=== PATIENT | male | born 1950 | race Caucasian/White ===

== ENCOUNTER 2020-06-28 09:05 | Emergency (ER) | payer OTHER, SELFPAY ==
[2020-06-28 09:06] VITALS: BP 130/75; PULSE 69; RESP 20; TEMP 36.6; O2SAT 95; BMI 24.3
--- NOTE | 2020-06-28 09:26 | CT_ITS ---
STUDY: CT ABDOMEN AND PELVIS WITH CONTRAST REASON FOR EXAM: Male, 70 years old. Abdominal pain -- IV PO Contrast. History of hiatal hernia. RADIATION DOSAGE (If Supplied By Facility): CTDIvol = ( 14.45 ) mGy, DLP = ( 776.91 ) mGycm TECHNIQUE: Transaxial images were obtained from the dome of the diaphragm to the symphysis pubis without oral contrast. Oral and amp;amp; IV Gastrografin and amp;amp; 100mL Isovue-300 was administered. Sagittal and coronal images were reconstructed. Individualized dose optimization techniques were used for this CT. COMPARISON: None. FINDINGS: Mild degree of increased linear markings at the lung bases suggestive of atelectasis and/or scarring. The visualized portions of the heart are within normal limits. Normal liver. Normal gallbladder and extrahepatic biliary system. Normal spleen. Normal pancreas. There is a small, circumscribed, smooth, low attenuation left adrenal mass, consistent with an adrenal adenoma. This measures 1.3 cm. Normal right adrenal gland. Normal right kidney. Normal left kidney. There is a small hiatal hernia. Normal small intestine. There is a 2.3 cm x 2.3 cm fatty mass in the region of the ileocecal valve. This may represent a lipomatous ileocecal valve. The fat-containing polyp cannot be excluded. Scattered sigmoid diverticula. The patient is status post appendectomy. There is scattered atherosclerotic calcification of the abdominal aorta, without a demonstrated aneurysm. Normal inferior vena cava. Normal retroperitoneum. Normal urinary bladder. There are prostatic calcifications. Mild prostatic enlargement. There is a small umbilical hernia containing fat. There are mild degenerative changes of the visualized lumbar spine. CT/Abdomen/Pelvis WITH Contrast IMPRESSION: Fat containing mass in the cecum in the region of the ileocecal valve. This may represent either a fatty ileocecal valve or fat-containing polyps. Scattered sigmoid diverticula. 1.3 cm left adrenal adenoma. Electronically Signed: Sreedhar Soto MD at 11:28 EDT , Service support ,
--- NOTE | 2020-06-28 09:28 | EX.ED.DYSGE1 ---
HPI History of Present Illness Chief Complaint: Fatigue Informant: patient Onset/Context/Timing Onset: Month(s) Timing: Waxes and wanes Quality: Fatigued and weak Location: Generalized Worsened by: Nothing Relieved by: Nothing Narrative Narrative: Patient presents with fatigue and weakness that has been getting worse over the past few months. Patient states his symptoms have been waxing and waning over this time. Patient states sometimes when he eats his abdominal pain gets worse. Patient is concerned that this may be related to his gallbladder or colon. Patient admits to some intermittent nausea but denies any vomiting. Patient denies any shortness of breath or cough. Patient denies any chest pain. Patient admits to occasional headache. PFSH PFSH no medical history Home Medications NK 06/28/20 [History Last Taken Unknown] cephalexin 500 mg PO Q6 #12 capsule 06/28/20 [Rx Last Taken Unknown] Allergy/AdvReac Type Severity Reaction Status Date / Time No Known Allergies Allergy Verified 06/28/20 09:08 Surgical History (Updated 06/28/20 @ 09:[address] Vic Leahy DO) History of appendectomy History of arthroscopic knee surgery History of repair of hiatal hernia Social History Smoking Status: Never smoker ROS ROS ED Constitutional Constitutional ED: Denies chills or fever(s) Eyes Eyes: Denies blurry vision or change in vision ENT ENT ED: Denies rhinorrhea or sore throat Cardiovascular Cardiovascular: Denies chest pain or palpitations Respiratory/Chest Respiratory/Chest: Denies cough or dyspnea Gastrointestinal Gastrointestinal: Reports abdominal pain and nausea; Denies vomiting Genitourinary Genitourinary ED: Denies dysuria or hematuria Musculoskeletal Musculoskeletal: Denies back pain or neck pain Integumentary Denies abscess or rash Neurologic Neurologic: Reports headache(s); Denies weakness Allergic/Immunologic Allergic/Immunologic ED: Denies mouth swelling or urticaria EXAM Physical Exam Const Vital Signs: 06/28/20 09:06 06/28/20 09:14 06/28/20 12:35 Temperature 97.9 F Temperature Source Temporal Pulse Rate 69 63 Respiratory Rate 20 H 14 Respiratory Effort Normal Non-Labored Respiratory Pattern Normal Blood Pressure 130/75 H 111/78 Blood Pressure Mean 93 89 Pulse Ox 95 96 Oxygen Delivery Method Room Air Room Air Positive well nourished and well developed General Appearance ED: well developed HEENT Reports moist mucous membranes Neck supple and no JVD Resp normal respiratory effort and clear to auscultation bilaterally Cardio regular rate and regular rhythm GI normal to inspection, nondistended, normoactive bowel sounds Palpation: soft and tender other (There is mild diffuse tenderness); Negative for guarding or rebound tenderness present Extremity General Extremety ED: Negative for edema or tenderness General Extremity: Negative for edema Neuro oriented x3, CN's II-XII intact bilaterally and no sensory deficits noted Sensorium / Orientation: alert Motor Exam: strength 5/5 throughout Psych mental status grossly normal MDM MDM MDM Narrative Medical decision making narrative: CBC and comprehensive metabolic profile was within normal limits. Urinalysis shows evidence of urinary tract infection with leukocyte esterase of 500 and white blood cell count of 25-50 and 2+ bacteria. CT scan of the abdomen pelvis was obtained. There is no evidence of diverticulitis. There is diverticulosis. There is a left adrenal adenoma. There is no evidence of cholelithiasis or cholecystitis. There is no acute intra-abdominal process. This was interpreted by the radiologist and reviewed by myself. Patient was given a dose of Keflex here. Patient was given a prescription for Keflex. Patient was instructed to follow-up with his primary care physician in 5 to 7 days for further evaluation. Patient understood and was agreeable with the plan. All questions were answered. Lab Data Attestation: I reviewed the patient's lab results. Labs: Laboratory Results - last 24 hr 06/28/20 06/28/20 06/28/20 09:30 09:30 09:40 WBC 5.4 RBC 4.62 Hgb 14.4 Hct 43.8 MCV 94.8 H MCH 31.2 MCHC 32.9 RDW Std Deviation 50.3 H RDW Coeff of [place] 14.5 Plt Count 191 MPV 10.9 Immature Gran % (Auto) 0.400 Neut % (Auto) 59.9 Lymph % (Auto) 24.2 [place] % (Auto) 12.5 H Eos % (Auto) 2.6 Baso % (Auto) 0.4 Absolute Neuts (auto) 3.2 Absolute Lymphs (auto) 1.30 Nucleated RBC % 0 Sodium 138 Potassium 3.9 Chloride 104 Carbon Dioxide 30.0 Anion Gap 4 L BUN 21 H Creatinine 0.90 Estim Creat Clear Calc 72.83 Est GFR (MDRD) Af Amer 107 Est GFR (MDRD) Non-Af 89 BUN/Creatinine Ratio 23.4 H Glucose 99 Calcium 8.4 L Total Bilirubin 0.50 AST 18 ALT 10 L Alkaline Phosphatase 82 Total Protein 7.3 Albumin 3.5 Globulin 3.8 Albumin/Globulin Ratio 0.9 Lipase 164 Urine Color Yellow Urine Clarity Sl. Cloudy Urine pH 5.0 Ur Specific Center [place] 1.025 Urine Protein 15 H Urine Glucose (UA) Normal Urine Ketones 5 H Urine Occult Blood 10 H Urine Nitrite Negative Urine Bilirubin Negative Urine Urobilinogen Normal Ur Leukocyte Esterase 500 H Urine RBC 0-5 SEEN Urine WBC 25-50 SEEN Ur Squamous Epith Cells 0-5 SEEN Urine Bacteria 2+ Urine Mucus 1+ Radiography Diagnostic Testing: Radiology Impression Abdomen/Pelvis CT 06/28/20 09:26 IMPRESSION: Fat containing mass in the cecum in the region of the ileocecal valve. This may represent either a fatty ileocecal valve or fat-containing polyps. Scattered sigmoid diverticula. 1.3 cm left adrenal adenoma. Electronically Signed: Sreedhar Soto MD at 11:28 EDT , Service support , Discharge Plan Triage Chief Complaint: Fatigue ED Provider: Vic Leahy Dx/Rx/DC Orders Clinical Impression: Urinary tract infection Instructions: ED Bladder Infection, Male (Adult) Prescriptions: New cephalexin [cephalexin] 500 MG capsule 500 mg PO Q6 Qty: 12 RF: 0 No Action NK RF: 0 Primary Care Provider: Joey Betancur Referrals: Joey Betancur DO [Primary Care Provider] - 5-7 Days Disposition Disposition: Home, self care
[2020-06-28 09:41] LABS: Absolute Neutrophil Count 3.2 X10^3/uL (2.0-7.7); Basophil# 0.02 X10^3/uL; Basophil% 0.4 % (0-1); Eosinophil# 0.14 X10^3/uL; Eosinophils% 2.6 % (0-5); Hematocrit 43.8 % (40-54); Hemoglobin 14.4 g/dL (13.0-16.5); Lymphocyte % 24.2 % (19-41); Mean Corp Hgb Conc 32.9 g/dL (32-36); Mean Corpuscular Hgb 31.2 pg (27.0-32.0); Mean Corpuscular Volume 94.8 fL (80-94); Mean Platelet Vol. 10.9 fl (6.2-12.0); Monocyte# 0.67 X10^3/uL; Monocyte% 12.5 % (0-10); NRBC Flagged by Analyzer 0 % (0-5); Neutrophil # 3.22 X10^3/uL (2.7-7.7); Neutrophil % 59.9 % (47-70); Platelet Count 191 K/mm3 (150-450); RBC Distribution Width CV 14.5 % (11.6-14.6); RBC Distribution Width SD 50.3 fl (35.1-43.9); Red Blood Count 4.62 M/mm3 (4.6-6.2); White Blood Count 5.4 K/mm3 (4.4-11.0)
[2020-06-28] MEDS: 0.9% Normal Saline 1,000 ML 1000 ML IV (09:42)
[2020-06-28 09:55] LABS: ALB/GLOB Ratio 0.9 RATIO (0.9-2.4); AST(SGOT) 18 U/L (15-37); Alanine Aminotransfer ALT/SGPT 10 U/L (16-61); Albumin, Serum 3.5 g/dL (3.2-5.0); Alkaline Phosphatase 82 U/L (45-117); Anion Gap 4 (5-15); BUN 21 mg/dL (7-18); BUN/Creat Ratio 23.4 RATIO (10-20); Calcium,Total 8.4 mg/dL (8.5-10.1); Chloride 104 mmol/L (98-107); EST Glomerular Filtration Rate 89 mL/min (>60); Est Glom Filt Rate - Afr Amer 107 mL/min (>60); Estimated Creatinine Clearance 72.83 ml/min; Globulin 3.8 g/dL (2.2-4.2); Glucose 99 mg/dL (74-106); Lipase 164 U/L (73-393); Potassium 3.9 mmol/L (3.5-5.1); Protein, Total 7.3 g/dL (6.4-8.2); Sodium Level 138 mmol/L (136-145)
[2020-06-28 09:56] LABS: Color, Urine Yellow (Yellow); Glucose, Dipstick Normal (Normal); Ketone-Dipstick 5 mg/dl (Negative); Leukocyte Esterase-Dipstick 500 /ul (Negative); Nitrite-Dipstick Negative (Negative); Occult Blood-Urine 10 /ul (Negative); Protein-Dipstick 15 mg/dl (Negative); Specific Gravity, Urine 1.025 (1.002-1.030); Urine Bilirubin Dipstick Negative (Negative); Urine Clarity Sl. Cloudy (Clear); Urine Urobilinogen Normal (Normal)
[2020-06-28 10:05] LABS: Bacteria 2+ /hpf (None Seen); Mucous, Urine 1+ /hpf (<or=2+); Red Blood Cells-Urine 0-5 SEEN /hpf (0-5); Squamous Epithelial Cells - UA 0-5 SEEN /hpf (0-5); White Blood Cells 25-50 SEEN /hpf (0-5)
[2020-06-28 12:35] VITALS: BP 111/78; PULSE 63; RESP 14; O2SAT 96
[2020-06-28] MEDS: Cephalexin 500 MG Capsule PO (13:31)
[2020-06-28 13:37] VITALS: BP 119/74; PULSE 63; RESP 14; O2SAT 99
== END 2020-06-28 13:38 | disposition home or self-care (01) ==
PROVIDERS: Emergency Provider Emergency Medicine; PCP Family Medicine
DX: N39.0 Urinary tract infection, site not specified (principal); R51.9 Headache, unspecified; K57.30 Diverticulosis of large intestine without perforation or abscess without bleeding; D35.02 Benign neoplasm of left adrenal gland
CPT/HCPCS: 74177; 80053; 81001; 83690; 85025; 96360; 96361; 99284; Q9967

== ENCOUNTER 2020-07-23 08:09 | Day surgery (SDC) | payer SELFPAY, OTHER ==
[2020-07-19 09:10] VITALS: BMI 24.3
[2020-07-23] VITALS (7 sets, daily range): BP systolic 87–107; BP diastolic 64–73; PULSE 60–78; RESP 16; TEMP 36.2–36.9; O2SAT 92–96; BMI 24.0
[2020-07-23] MEDS: Lactated Ringers 1,000 ML 100 ML IV (08:32)
--- NOTE | 2020-07-23 08:45 | PCM.HP.BLA ---
History and Physical Date of Admission: 07/23/20 Intake Vital Signs 07/19/20 09:03 07/19/20 09:10 Height 5 ft 8 in Weight: 162 lb BMI 24.6 24.3 BP 117/82 H Blood Pressure Location Rt brachial Position Sitting Respiration 16 Pulse 68 Pulse Source Monitor Temp 97.8 F Temp Source Temporal Pulse Oximetry (%) 91 Oxygen Delivery Method room air Intake Visit Reasons: CSCOPE, EGD Mid Level Business Analyst Required: No Accompanied by: Self Is patient in pain?: No Allergies No Known Allergies Allergy (Verified 07/19/20 09:05) Medications NK 06/28/20 [History Confirmed 06/28/20] [facility] Medical History (Updated 07/19/20 @ 10:[address] Matt Diaz MD) Abdominal pain Diarrhea Fatigue Mass of cecum Sigmoid diverticulum Surgical History (Updated 07/19/20 @ 09:01 by Helene Smith) History of appendectomy History of arthroscopic knee surgery History of colonoscopy History of repair of hiatal hernia Family History (Updated 07/19/20 @ 09:02 by Helene Smith) Sister Pancreatic cancer Mother Diabetes Social History (Updated 07/19/20 @ 09:03 by Helene Smith) Smoking Status: Never smoker second hand exposure: No alcohol intake: never substance use type: does not use caffeine: Yes what type of physical activity do you participate in: walking HPI HPI HPI: WES PHELAN, is a 70 M who presents to the office today for right-sided abdominal pain. The patient notes that he has had a fundoplication in the past. He reports that he has been having a lot of fatigue. His blood count was normal. He is not having gross blood in his stool. His last colonoscopy was 6 years ago in [place]. He thinks it was normal. He was recently emergency room and had a CT scan which showed a fat-containing mass in the cecum. ROS General General: Yes fatigue; No weight change, appetite, colon cancer, breast cancer or weakness HEENT HEENT: No difficulty swallowing, eye injury, eye surgery, swollen glands or hoarseness Endo Endocrine: No thyroid disease, diabetes mellitus, thyroid cancer, Hair loss, heat intolerance or cold intolerance Skin Skin: No rash or changing moles Musc Musculoskeletal: No back problems, arthritis, rheumatoid arthritis, gout or joint pain Cardio Cardiovascular: No murmur, pacemaker, heart disease, atrial fibrillation, high blood pressure, heart attack, heart stent, palpitations, shortness of breat with exertion or chest pain Psych Psychiatric: No depression, anxiety or hearing voices Resp Respiratory: No shortness of breath, No sleep apnea, Yes cough, No COPD, No asthma, No emphysema and No wheezing Gastro Gastrointestinal: Yes abdominal pain, No nausea or vomiting, Yes diarrhea, No constipation, No blood in stool, No acid reflux, No hemorrhoids, No ulcers, No gallbladder problem and No black,tarry stools Ángel Hematologic: No blood thinners, No blood disorders, No bleeding, No anemia and No blood clots Neuro Neurologic: No weakness Exam Const General: cooperative Orientation: alert and oriented x3 HENMT Head: normal to inspection Neck Neck: normal visual inspection and full ROM Chest Chest palpation & inspection: normal inspection of the chest Resp Effort & Inspection: normal respiratory effort Auscultation: clear to auscultation bilaterally Cardio Rate: regular rate Rhythm: regular rhythm GI Inspection: non-distended Palpation: soft and nontender Skin General: no rashes or lesions noted Neuro General: patient alert and patient oriented x3 Extrem General: full ROM Psych Appearance: grossly normal Mental Status: mental status grossly normal Assessment and Plan Assessment and Plan (1) Abnormal CT scan, colon: Status: Acute (2) Abdominal pain: Status: Acute Qualifiers: Abdominal location: right lower quadrant Qualified Code(s): R10.31 - Right lower quadrant pain Orders: Orders: Colonoscopy Today R93.3 Plan - Dr. Matt Diaz MD: Patient is having right-sided abdominal pain and he had an abnormal CT that showed a fat-containing mass in the right colon. Patient is also complaining of a lot of fatigue and he was having some difficulty in his epigastric region. He has a history of hiatal hernia repair. I did offer the patient EGD and colonoscopy to check for any malignancy and to evaluate the fat-containing mass in the cecum. The patient understands and would like to proceed with both scopes. I explained endoscopy in detail to the patient. I explained the risks including but not limited to stroke or heart attack with anesthesia, perforation of the GI tract, bleeding, infection. I explained that any of these could necessitate further emergency surgery. The patient understands and all questions were answered sufficiently. The patient wishes to proceed with procedure. Matt Diaz MD Pager: [facility] [address] [place] [address], [address] [place] [address] Office: I have re-examined the patient. There are no clinical changes since date of exam.
--- NOTE | 2020-07-23 09:00 | COLBX_PTH ---
PATIENT: WES PHELAN LOC: EN U#:[id number] AGE/SX: 70/M ROOM: RE07/23/[address]: Dr. Matt Diaz MD : 1950 BED: DIS: 07/23/2020 SPEC #: [id number] RECD: 07/23/20 10:29 STATUS: LISY BUTLER #: [id number] MANOHAR: 07/23/20 09:[address]: Matt Diaz DEPT: SURGICAL PATHOLOGY RECD BY: Preeti Baires ENTERED: 07/23/20 11:44 SP TYPE: COLON BX OTHR DR: Dr. Joey Betancur DO Tissues: Transverse colon Procedures: Surgery Specimen Level IV HEADER OPERATION: Colonoscopy, EGD ([facility]) PRE-OP DIAGNOSIS: Right-sided abdominal pain; abnormal CT showing fat-containing right colon mass TISSUE SUBMITTED: Transverse polyps MICROSCOPIC DIAGNOSIS Transverse colon polyp, biopsy: Fragments of hyperplastic polyp. Fragments of fecal material. SJ:honey 07/26/2020 MICROSCOPIC DESCRIPTION Slides are reviewed. GROSS DESCRIPTION Received in fixative is one container labeled with the patient's name and designated transverse polyps. The specimen consists of multiple irregular fragments of light caldera soft tissue mixed with fecal material that in aggregate measure 2 x 0.5 x 0.3 cm. The specimen is totally submitted in one cassette. / JEFF:honey 07/23/20 TC:1 CPT: 33959
--- NOTE | 2020-07-23 12:12 | OP.CCLET_ITS ---
07/23/2020 Joey Betancur Re : Colonoscopy procedure for Maty Magdalenoler This procedure was performed on Thursday, July 23, 2020. My impressions and recommendations are as follows: Impressions : - Two medium polyps in the transverse colon, removed with a hot snare. Resected and retrieved. - The examination was otherwise normal on direct and retroflexion views. Recommendations : - Discharge patient to home. - Resume previous diet. - Continue present medications. - Await pathology results. - Repeat colonoscopy in 5 years for surveillance. My findings are described in the full procedure note, which is enclosed. If I can be of further assistance, please feel free to contact me at Doctor phone number(s): , Work: . Sincerely, Matt Diaz MD 07/23/2020 9:42:13 AM This report has been signed electronically.
--- NOTE | 2020-07-23 12:12 | OP.EGD_ITS ---
Patient Name: Maty Colin Procedure Date: 07/23/2020 8:52 AM Date of : 1950 Age: 70 Procedure: Upper GI endoscopy Indications: Gastro-esophageal reflux disease Providers: Matt Diaz MD Referring MD: Matt Diaz MD Medicines: Monitored Anesthesia Care Patient Profile: This is a 70 year old male. Refer to note in patient chart for documentation of history and physical. Complications: No immediate complications. Procedure: Pre-Anesthesia Assessment: - Prior to the procedure, a History and Physical was performed, and patient medications and allergies were reviewed. The patient's tolerance of previous anesthesia was also reviewed. The risks and benefits of the procedure and the sedation options and risks were discussed with the patient. All questions were answered, and informed consent was obtained. Prior Anticoagulants: The patient has taken no previous anticoagulant or antiplatelet agents. After reviewing the risks and benefits, the patient was deemed in satisfactory condition to undergo the procedure. After obtaining informed consent, the endoscope was passed under direct vision. Throughout the procedure, the patient's blood pressure, pulse, and oxygen saturations were monitored continuously. The gastroscope was introduced through the mouth, and advanced to the second part of duodenum. The upper GI endoscopy was accomplished without difficulty. The patient tolerated the procedure well. Scope In: 9:08:14 AM Scope Out: 9:10:25 AM Total Procedure Duration Time 0 hours 2 minutes 11 seconds Findings: The esophagus was normal. The stomach was normal. Saravanan wrap intact and below diaphragm. The examined duodenum was normal. Impression: - Normal esophagus. - Normal stomach. - Normal examined duodenum. - No specimens collected. Recommendation: - Discharge patient to home. - Resume previous diet. - Continue present medications. Procedure Code(s): --- Professional --- 83216, Esophagogastroduodenoscopy, flexible, transoral; diagnostic, including collection of specimen(s) by brushing or washing, when performed (separate procedure) Diagnosis Code(s): --- Professional --- K21.9, Gastro-esophageal reflux disease without esophagitis CPT copyright 2017 [employer]. All rights reserved. The codes documented in this report are preliminary and upon senior sales associate review may be revised to meet current compliance requirements. Matt Diaz MD 07/23/2020 9:30:26 AM This report has been signed electronically. Number of Addenda: 0 Note Initiated On: 07/23/2020 8:52 AM
--- NOTE | 2020-07-23 12:12 | OP.CCLET_ITS ---
07/23/2020 Joey Betancur Re : Upper GI endoscopy procedure for Maty Antoine Gypsy This procedure was performed on Thursday, July 23, 2020. My impressions and recommendations are as follows: Impressions : - Normal esophagus. - Normal stomach. - Normal examined duodenum. - No specimens collected. Recommendations : - Discharge patient to home. - Resume previous diet. - Continue present medications. My findings are described in the full procedure note, which is enclosed. If I can be of further assistance, please feel free to contact me at Doctor phone number(s): , Work: . Sincerely, Matt Diaz MD 07/23/2020 9:30:26 AM This report has been signed electronically.
--- NOTE | 2020-07-23 12:12 | OP.COLON_ITS ---
Patient Name: Maty Colin Procedure Date: 07/23/2020 9:10 AM Date of : 1950 Age: 70 Procedure: Colonoscopy Indications: Abnormal CT of the GI tract Providers: Matt Diaz MD Referring MD: Matt Diaz MD Medicines: Monitored Anesthesia Care Patient Profile: This is a 70 year old male. Refer to note in patient chart for documentation of history and physical. Last Colonoscopy: date unknown. Complications: No immediate complications. Procedure: Pre-Anesthesia Assessment: - Prior to the procedure, a History and Physical was performed, and patient medications and allergies were reviewed. The patient's tolerance of previous anesthesia was also reviewed. The risks and benefits of the procedure and the sedation options and risks were discussed with the patient. All questions were answered, and informed consent was obtained. Prior Anticoagulants: The patient has taken no previous anticoagulant or antiplatelet agents. After reviewing the risks and benefits, the patient was deemed in satisfactory condition to undergo the procedure. After I obtained informed consent, the scope was passed under direct vision. Throughout the procedure, the patient's blood pressure, pulse, and oxygen saturations were monitored continuously. The Colonoscope was introduced through the anus and advanced to the cecum, identified by appendiceal orifice and ileocecal valve. The quality of the bowel preparation was good. Scope In: 9:12:42 AM Scope Withdrawal Time 0 hours 9 minutes 42 seconds Scope Out: 9:26:59 AM Total Procedure Duration Time 0 hours 14 minutes 17 seconds Findings: Two polyps were found in the transverse colon. The polyps were medium in size. These polyps were removed with a hot snare. Resection and retrieval were complete. The exam was otherwise without abnormality on direct and retroflexion views. Ileocecal valve was normal with no lipoma or mass noted. Impression: - Two medium polyps in the transverse colon, removed with a hot snare. Resected and retrieved. - The examination was otherwise normal on direct and retroflexion views. Recommendation: - Discharge patient to home. - Resume previous diet. - Continue present medications. - Await pathology results. - Repeat colonoscopy in 5 years for surveillance. Procedure Code(s): --- Professional --- 56280, Colonoscopy, flexible; with removal of tumor(s), polyp(s), or other lesion(s) by snare technique Diagnosis Code(s): --- Professional --- D12.3, Benign neoplasm of transverse colon (hepatic flexure or splenic flexure) R93.3, Abnormal findings on diagnostic imaging of other parts of digestive tract CPT copyright 2017 [employer]. All rights reserved. The codes documented in this report are preliminary and upon internal medicine specialist review may be revised to meet current compliance requirements. Matt Diaz MD 07/23/2020 9:42:13 AM This report has been signed electronically. Number of Addenda: 0 Note Initiated On: 07/23/2020 9:10 AM
== END 2020-07-23 10:30 ==
LOC: EN 08:10 → AC 08:11
PROVIDERS: PCP Family Medicine; Referring Provider Surgery; Visit Provider Surgery
PROC: 0DJD8ZZ Inspection of Lower Intestinal Tract, Via Natural or Artificial Opening Endoscopic (ICD-10-PCS; CPT 45378; principal; 2020-07-23 08:55)
DX: K63.5 Polyp of colon (principal); K21.9 Gastro-esophageal reflux disease without esophagitis; H91.90 Unspecified hearing loss, unspecified ear; G25.81 Restless legs syndrome; Z87.19 Personal history of other diseases of the digestive system
CPT/HCPCS: 43235; 45385; 87426; 88305; C9803; J7120; J2405

== ENCOUNTER 2021-05-26 14:16 | Outpatient (CLI) | payer OTHER, SELFPAY ==
[2021-05-26 15:19] LABS: Hematocrit 47.1 % (40-54); Hemoglobin 15.5 g/dL (13.0-16.5); Mean Corp Hgb Conc 32.9 g/dL (32-36); Mean Corpuscular Volume 94.2 fL (80-94); Mean Platelet Vol. 11.2 fl (6.2-12.0); Platelet Count 271 K/mm3 (150-450); RBC Distribution Width CV 14.1 % (11.6-14.6); RBC Distribution Width SD 48.8 fl (35.1-43.9); White Blood Count 8.5 K/mm3 (4.4-11.0)
[2021-05-26 15:58] LABS: AST(SGOT) 19 U/L (15-37); Alanine Aminotransfer ALT/SGPT 14 U/L (16-61); Albumin, Serum 3.8 g/dL (3.2-5.0); Alkaline Phosphatase 73 U/L (45-117); Globulin 3.9 g/dL (2.2-4.2); Protein, Total 7.7 g/dL (6.4-8.2); T4 Free Direct 0.72 ng/dL (0.76-1.46); Thyroid Stim Hormone (TSH) 1.09 uIU/mL (0.358-3.74)
== END 2021-05-26 23:59 | disposition home or self-care (01) ==
LOC: LAB 14:17
PROVIDERS: PCP Family Medicine; Visit Provider Internal Medicine Pulmonary Disease
DX: G47.10 Hypersomnia, unspecified (principal); R06.00 Dyspnea, unspecified; Z87.891 Personal history of nicotine dependence
CPT/HCPCS: 36415; 80076; 84403; 84439; 84443; 85027

== ENCOUNTER 2024-06-06 11:52 | Emergency (ER) | payer OTHER, SELFPAY ==
[2024-06-06 11:53] VITALS: BP 125/98; PULSE 72; RESP 14; TEMP 36.6; O2SAT 95; BMI 24.7
--- NOTE | 2024-06-06 12:12 | EKG12_ITS ---
Test Reason : GENERAL Blood Pressure : */* mmHG Vent. Rate : 55 BPM Atrial Rate : 55 BPM P-R Int : 160 ms QRS Dur : 90 ms QT Int : 430 ms P-R-T Axes : 7 -23 1 degrees QTcB Int : 411 ms Sinus bradycardia Otherwise normal ECG Confirmed by TREMAYNE WALTON, ANOOP ([id number]), editor greeting card LOLI ANTHONY ([id number]) on 06/09/2024 9:58:09 AM Referred By: Confirmed By: ANOOP CASPER MD
--- NOTE | 2024-06-06 12:13 | CT_ITS ---
PROCEDURE: ABDOMEN/PELVIS W IV CONT ONLY (procedure code CTABDPELIV), N/A REASON FOR EXAM: ABDOMEN PAIN TECHNIQUE: CT abdomen and pelvis was performed with IV contrast. Multiplanar reformats were generated. CONTRAST: Isovue 370 VOLUME: 98mL RADIATION DOSE SUMMARY: CTDlvol: 16.62+ 12.47 mGy DLP: 619.01 mGycm One or more dose reduction techniques were used (e.g., Automated exposure control, adjustment of the mA and/or kV according to patient size, use of iterative reconstruction technique). COMPARISON: 06/28/2020 ; note that images only are available for review, the report is not available at the time of the dictation. FINDINGS: Lung bases: Atelectasis/scarring. Additional vaguely nodular airspace disease in the LEFT lung base with clustered morphology. Discrete nodules in the region up to 8 x 5 mm. Similar elevation of the LEFT hemidiaphragm. Mitral annular calcification. Liver: Unremarkable. Spleen: Unremarkable. Gallbladder: Unremarkable. Pancreas: Pancreatic parenchymal calcifications compatible with chronic pancreatitis. Mild dilatation of the proximal main pancreatic duct to 5 mm at the pancreatic head, previously 4 mm. 9 mm hypodense likely cystic lesion along the pancreatic tail, unchanged.. Adrenals: Nodular thickening of the GGZZ-[id number]-[id number]-RIGHT adrenal gland, similar to prior, suggesting glandular hyperplasia. Kidneys: LEFT renal cyst. Tiny hypodensity in the RIGHT too small to characterize likely an additional cyst. No hydronephrosis. Punctate 2 mm calculus either within the RIGHT UVJ or within the dependent bladder lumen immediately adjacent to the UVJ. Additional punctate 3 mm nonobstructing intrarenal calculus on the RIGHT. Bowel: Diverticulosis. Mild rectosigmoid wall thickening versus underdistention.. No convincing inflammation. Borderline mildly dilated small bowel loops in the anterior LEFT mid abdomen up to 3.0 cm without convincing transition. Mild gaseous dilatation of the transverse colon to 6.1 cm. Appendix reportedly surgically absent. Lymph nodes: Unremarkable. Vasculature: Moderate to advanced atherosclerosis. Trace stranding surrounding the celiac axis is new. Mild ectasia of the proximal celiac artery to 11 mm.. Peritoneum: New trace pelvic free fluid. Bladder: As above. Otherwise underdistended and suboptimally evaluated. Reproductive Organs: Prostatomegaly. Body Wall: Small fat containing umbilical hernia. Bones: Suspect demineralization. Multilevel spinal canal stenoses up to at least moderate/severe at L3-L4, suboptimally evaluated by CT.. CT/Abdomen/Pelvis W IV Cont ONLY IMPRESSION: 1. Punctate 2 mm calculus either within the RIGHT UVJ or within the dependent b ladder lumen immediately adjacent to the UVJ. No hydronephrosis. 2. Findings most suggestive of mild small and large bowel ileus. 3. New trace stranding surrounding the celiac artery is nonspecific. Correlate for clinical evidence of vasculitis. 4. Findings in the LEFT lung base suggestive of a mild infectious/inflammatory process such as pneumonia. Discrete nodules in the region up to 6.5 mm average axial diameter may be infectious/inflammatory, however this is not definite. Recommend CT chest in 6-12 and 18-24 months per the Fleischner recommendations, presuming no histo ry of known malignancy or immunosuppression. 5. Mild rectosigmoid wall thickening versus underdistention. No convincing inf lammation to suggest proctocolitis. Recommend clinical follow-up to exclude underlying lesion. 6. Trace pelvic free fluid, nonspecific but unexpected in a male. 7. Similar 9 mm pancreatic lesion likely to reflect a cystic neoplasm such as a n IPMN. Background changes of chronic pancreatitis. Similar borderline mild main pancreatic ductal dilatation proxim ally. Given findings are relatively stable, recommend multiphase MRI abdomen with MRCP in 2 years per ACR recommendations. 8. Additional description as above. Reading Location: [id number]
--- NOTE | 2024-06-06 12:15 | EX.ED.DYSGE1 ---
HPI History of Present Illness Chief Complaint: Abd Pain Narrative Narrative: Patient is a 74-year-old male who is presenting today with chief complaint of upper abdominal pain. Patient is having upper abdominal swelling, discomfort, patient is having more burping and flatulence as well. This been going on for 2 or 3 days. Mild nausea, no vomiting. No fever or chills. No chest pain or shortness of breath. Patient has no history of cancer. Patient has a EGD and colonoscopy 4 to 5 years ago with no significant findings. Patient did have some polyps removed. Patient had a friend dropped him onto the ER. Patient says the upper abdominal swelling has been intermittent over the last week [facility] Medical History (Updated 06/06/24 @ 13:[address] Valentin Johnson, DO) Loss of hearing Wears glasses Wears dentures Easy bruising Restless legs Back pain Hx of headache Injury of head and neck History of hiatal hernia Smoker Sigmoid diverticulum Mass of cecum Diarrhea Abdominal pain Fatigue Home Medications ?Medication ?Instructions ?Recorded ?Last Taken ?Type dicyclomine 10 mg capsule 20 mg (2 x 10 mg) PO TIDAC #20 06/06/24 Unknown Rx CAPSULES ondansetron 4 mg disintegrating 4 mg PO Q8H PRN PRN Nausea #10 tabs 06/06/24 Unknown Rx tablet Allergy/AdvReac Type Severity Reaction Status Date / Time No Known Allergies Allergy Verified 06/06/24 12:21 Family History (Updated 07/19/20 @ 09:02 by Helene Smith) Sister Pancreatic cancer Mother Diabetes Surgical History Hx of vein stripping History of colonoscopy History of arthroscopic knee surgery History of appendectomy History of repair of hiatal hernia Social History (Updated 07/19/20 @ 09:03 by Helene Smith) Smoking Status: Current every day smoker tobacco type: cigars second hand exposure: No alcohol intake: never substance use type: does not use caffeine: Yes what type of physical activity do you participate in: walking ROS ROS ED ROS Narrative REVIEW OF SYSTEMS: Unless otherwise stated in this report the patient's positive and negative responses for review of systems for constitutional, eyes, ENT, cardiovascular, respiratory, gastrointestinal, neurological, , musculoskeletal, and integument systems and related systems to the presenting problem are either stated in the history of present illness or were not pertinent or were negative for the symptoms and/or complaints related to the presenting medical problem. EXAM Physical Exam Narrative Exam Narrative: Vital signs reviewed and patient is not hypoxic. General: The patient appears well and in no apparent distress. Patient is resting comfortably on cart. Not toxic, lethargic, or listless. Skin: Warm, dry, no pallor noted. There is no rash noted. Head: Normocephalic, atraumatic Eye: Normal conjunctiva, no drainage, EOMI. PERRL. Ears, Nose, Mouth, and Throat: oral mucosa is moist. Nares patent. Mouth without vesicles. Cardiovascular: Regular Rate and Rhythm, no murmurs, gallops, or rubs Respiratory: Patient is in no distress, no accessory muscle use, lungs are clear to auscultation, no wheezing, rales or rhonchi Back: non-tender, no CVA tenderness bilaterally to percussion. NO CTLS midline or paraspinal tenderness to palpation. GI: Soft, no tenderness to palpation, no masses appreciated. No rebound, guarding, or rigidity noted. Patient says the upper abdominal swelling has been intermittent over the last week. mild discomfort to left upper quadrant right upper quadrant midepigastric area. No tympany, no rigidity, no peritoneal signs. No flank pain bilaterally. Musculoskeletal: The patient has full range of motion of all extremities and joints with no difficulty. Patient has no motor, no sensory deficits. Neurological: A&O x4, normal speech, no focal neurological deficits. Psychiatric: Cooperative Const Vital Signs: 06/06/24 11:53 06/06/24 13:52 06/06/24 14:24 Temperature 98 F 98 F Temperature Source Oral Pulse Rate 72 70 70 Respiratory Rate 14 14 14 Blood Pressure 125/98 H 125/98 H Blood Pressure Mean 107 107 Pulse Ox 95 96 96 Oxygen Delivery Method Room Air Room Air MDM MDM MDM Narrative Medical decision making narrative: Patient seen and examined: Patient will have IV, labs, CT of the abdomen pelvis. Patient given 1 L IV fluid. Differential diagnosis includes but is not limited to: Nausea, vomiting, diarrhea, UTI, acid reflux, appendicitis, pancreatitis, obstruction, Relevant laboratory interpretation: No elevated white blood cells, glucose 114, troponin, LFTs, lipase normal. Radiological studies: IMPRESSION: 1. Punctate 2 mm calculus either within the RIGHT UVJ or within the dependent bladder lumen immediately adjacent to the UVJ. No hydronephrosis. 2. Findings most suggestive of mild small and large bowel ileus. 3. New trace stranding surrounding the celiac artery is nonspecific. Correlate for clinical evidence of vasculitis. 4. Findings in the LEFT lung base suggestive of a mild infectious/inflammatory process such as pneumonia. Discrete nodules in the region up to 6.5 mm average axial diameter may be infectious/inflammatory, however this is not definite. Recommend CT chest in 6-12 and 18-24 months per the Fleischner recommendations, presuming no history of known malignancy or immunosuppression. 5. Mild rectosigmoid wall thickening versus underdistention. No convincing inflammation to suggest proctocolitis. Recommend clinical follow-up to exclude underlying lesion. 6. Trace pelvic free fluid, nonspecific but unexpected in a male. 7. Similar 9 mm pancreatic lesion likely to reflect a cystic neoplasm such as an IPMN. Background changes of chronic pancreatitis. Similar borderline mild main pancreatic ductal dilatation proximally. Given findings are relatively stable, recommend multiphase MRI abdomen with MRCP in 2 years per ACR recommendations. 8. Additional description as above. Reevaluation: Patient feels better after 1 L of IV fluid. Patient has been burping throughout HPI, physical exam, and on reevaluation. Patient does feel better after IV fluids. Patient drinking Powerade with no difficulty. Social barriers to healthcare: There are no food insecurities, there is no issue with transportation, there are no insurance barriers Disposition: Options of being admitted to the hospital versus being discharged and following up with PCP in outpatient testing was discussed. 15 minutes was spent at bedside going over every single impression of his CAT scan, multiple questions, multiple explanations, multiple explaining things a few times that patient understands. A copy of the CAT scan report was given to the patient. He has had chronic back pain. He has not noticed any new pain to the right lower back, right flank or right lower quadrant. He has no history of kidney stone. Patient has no previous surgeries, he has had a EGD and colonoscopy before. He has no cancer. Patient has pulmonary nodules, no acute findings. Patient has a 9 mm pancreatic lesion possibly cystic neoplasm. Patient has mild main pancreatic duct dilatation. Recommendation MRIs and follow-up studies as well. Patient was recommended to be admitted to the hospital for observation. MY recommendation to be admitted for observation, additional repeat testing, hydration, and make sure ileus does not get worse. Patient does not want to be admitted to the hospital. Patient will be sent home with prescription for Zofrgabriel, Bentyl. Patient understands strict return precautions, especially if he is not passing any gas, having no bowel movements within 12 to 24 hours. Patient will continue clear liquids for the next couple days. Patient understands recommendation by myself to be admitted to the hospital for observation. Patient was to go home. Clear liquids for 2 or 3 days. Patient understands he can come back to the ER at any time. Shared decision making was done. Patient has a functional decision making capacity to decline my recommendation for admission to the hospital at this time 1445 lab work shows no acute findings. Patient wants to be discharged. Patient was able to keep all his Powerade in. Patient feels better. Patient has strict return precautions. Lab Data Attestation: I reviewed the patient's lab results. Labs: Laboratory Results - last 24 hr 06/06/24 06/06/24 12:26 12:37 WBC 10.0 RBC 4.17 L Hgb 13.1 Hct 38.5 L MCV 92.3 MCH 31.4 MCHC 34.0 RDW Std Deviation 46.7 H RDW Coeff of [place] 13.7 Plt Count 320 MPV 10.0 Immature Gran % (Auto) 0.500 Neut % (Auto) 63.9 Lymph % (Auto) 25.5 [place] % (Auto) 8.4 Eos % (Auto) 1.3 Baso % (Auto) 0.4 Absolute Neuts (auto) 6.4 Absolute Lymphs (auto) 2.55 Nucleated RBC % 0 Sodium 136 Potassium 3.9 Chloride 99 Carbon Dioxide 27.1 Anion Gap 10 BUN 13 Creatinine 0.84 Estim Creat Clear Calc 73.51 Est GFR (MDRD) Non-Af 91 BUN/Creatinine Ratio 15.9 Glucose 114 H Lactic Acid < 1.0 Calcium 8.9 Total Bilirubin 0.50 AST 17 ALT 6 Alkaline Phosphatase 69 Troponin T High Sens 10 Total Protein 6.9 Albumin 3.9 Globulin 3.0 Albumin/Globulin Ratio 1.3 Lipase 25 Radiography Diagnostic Testing: Clinical Impression(s) from Imaging Studies Abdomen/Pelvis CT 06/06/24 12:13 IMPRESSION: 1. Punctate 2 mm calculus either within the RIGHT UVJ or within the dependent bladder lumen immediately adjacent to the UVJ. No hydronephrosis. 2. Findings most suggestive of mild small and large bowel ileus. 3. New trace stranding surrounding the celiac artery is nonspecific. Correlate for clinical evidence of vasculitis. 4. Findings in the LEFT lung base suggestive of a mild infectious/inflammatory process such as pneumonia. Discrete nodules in the region up to 6.5 mm average axial diameter may be infectious/inflammatory, however this is not definite. Recommend CT chest in 6-12 and 18-24 months per the Fleischner recommendations, presuming no history of known malignancy or immunosuppression. 5. Mild rectosigmoid wall thickening versus underdistention. No convincing inflammation to suggest proctocolitis. Recommend clinical follow-up to exclude underlying lesion. 6. Trace pelvic free fluid, nonspecific but unexpected in a male. 7. Similar 9 mm pancreatic lesion likely to reflect a cystic neoplasm such as an IPMN. Background changes of chronic pancreatitis. Similar borderline mild main pancreatic ductal dilatation proximally. Given findings are relatively stable, recommend multiphase MRI abdomen with MRCP in 2 years per ACR recommendations. 8. Additional description as above. Reading Location: [facility] EKG Initial EKG: Attestation: I personally reviewed and interpreted this EKG as follows: (EKG interpretation. Sinus bradycardia 55 beats minute. Left axis deviation. No acute ST elevation, QTc of 411.) Discharge Plan Triage Chief Complaint: Abd Pain ED Provider: Valentin Johnson Dx/Rx/DC Orders Clinical Impression: Kidney stone on right side, Pancreatic cyst, Pulmonary nodules, Dynamic ileus, Nausea Instructions: Pancreatic Pseudocysts, Ileus, Preventing Kidney Stones, Obstruction Intestinal, ED Kidney Stone, Passed, ED Pulmonary Nodule, Solitary, ED Vomiting (Adult) Prescriptions: New ondansetron 4 mg tablet,disintegrating 4 mg PO Q8H PRN PRN (Reason: Nausea) Qty: 10 0RF dicyclomine 10 mg capsule 20 mg PO TIDAC Qty: 20 0RF Primary Care Provider: Joey Betancur Referrals: Joey Betancur DO [Primary Care Provider] - Friend,DO Ivan [Med Staff - Active Staff] - Activity Restrictions/Additional Instructions: Continue clear liquids over the next 2 or 3 days, Gatorade, Powerade, water. Do not eat any solid food for the next 2 or 3 days. Soup broth is okay as well. Only clear liquids. If you are not passing any gas or having any bowel movements in 12 to 24 hours, if you are having any abdominal distention, more pain, intractable nausea vomiting, or any other acute complaints, please return back to the ER. Recommendations for observation admission To observe ileus; you wanted to go home. Continue clear liquids, follow-up with your PCP on Sunday. You were given a copy of your CAT scan report. We have discussed kidney stones, pulmonary nodules, ileus, pancreatic cyst, concern for pancreatic neoplasm. Follow-up with PCP for further outpatient testing has been done. have referred Dr. Machado to you for GI referral to help with assistance for liver and pancreas as well Print Language: [place] Disposition Disposition: Home, Self Care Discharge Date/Time: 06/06/24 14:51
[2024-06-06] MEDS: 0.9% Normal Saline (1000mL) 1,000 ML 999 ML IV (12:25)
[2024-06-06 12:51] LABS: Absolute Lymphocyte Count 2.55 X10^3/uL (0.83-4.51); Absolute Neutrophil Count 6.4 X10^3/uL (2.0-7.7); Basophil# 0.04 X10^3/uL; Basophil% 0.4 % (0-1); Eosinophil# 0.13 X10^3/uL; Eosinophils% 1.3 % (0-5); Hematocrit 38.5 % (40-54); Hemoglobin 13.1 g/dL (13.0-16.5); Lymphocyte # 2.55 X10^3/ul (0.83-4.51); Lymphocyte % 25.5 % (19-41); Mean Corpuscular Hgb 31.4 pg (27.0-32.0); Mean Corpuscular Volume 92.3 fL (80-94); Monocyte# 0.84 X10^3/uL; Monocyte% 8.4 % (0-10); NRBC Flagged by Analyzer 0 % (0-5); Neutrophil # 6.38 X10^3/uL (2.7-7.7); Neutrophil % 63.9 % (47-70); Platelet Count 320 K/mm3 (150-450); RBC Distribution Width CV 13.7 % (11.6-14.6); RBC Distribution Width SD 46.7 fl (35.1-43.9); Red Blood Count 4.17 M/mm3 (4.6-6.2)
[2024-06-06 13:30] LABS: ALB/GLOB Ratio 1.3 RATIO (0.9-2.4); AST(SGOT) 17 U/L (<=37); Alanine Aminotransfer ALT/SGPT 6 U/L (<=46); Albumin, Serum 3.9 g/dL (3.4-4.8); Alkaline Phosphatase 69 U/L (40-129); Anion Gap 10 (5-15); BUN 13 mg/dL (4-19); BUN/Creat Ratio 15.9 RATIO (10-20); Calcium,Total 8.9 mg/dL (7.6-11.0); Carbon Dioxide 27.1 mmol/L (21.0-32.0); Chloride 99 mmol/L (98-108); Creatinine, Serum 0.84 mg/dL (0.70-1.20); EST Glomerular Filtration Rate 91 (>60); Estimated Creatinine Clearance 73.51 ml/min (50-250); Glucose 114 mg/dL (70-99); Lipase 25 U/L (13-75); Potassium 3.9 mmol/L (3.3-5.1); Protein, Total 6.9 g/dL (5.9-8.4); Sodium Level 136 mmol/L (133-145); Troponin T High Sensitivity 10 ng/L (<=22)
[2024-06-06 13:31] LABS: Lactic Acid < 1.0 mmol/L (0.0-2.0)
[2024-06-06 13:52] VITALS: PULSE 70; RESP 14; O2SAT 96
[2024-06-06 14:24] VITALS: BP 125/98; PULSE 70; RESP 14; TEMP 36.6; O2SAT 96
== END 2024-06-06 14:51 | disposition home or self-care (01) ==
PROVIDERS: Emergency Provider Emergency Medicine; PCP Family Medicine; Visit Provider Emergency Medicine
DX: R10.10 Upper abdominal pain, unspecified (principal); K56.699 Other intestinal obstruction unspecified as to partial versus complete obstruction; N20.0 Calculus of kidney; K86.2 Cyst of pancreas; R11.0 Nausea; R91.1 Solitary pulmonary nodule; F17.290 Nicotine dependence, other tobacco product, uncomplicated
CPT/HCPCS: 74177; 80053; 83605; 83690; 84484; 85025; 93005; 96360; 96361; 99283; Q9967; A4216

== ENCOUNTER 2024-12-27 18:02 | Emergency (ER) | payer OTHER, SELFPAY ==
[2024-12-27 18:03] VITALS: BP 112/70; PULSE 94; RESP 17; TEMP 36.8; O2SAT 94; BMI 24.6
--- NOTE | 2024-12-27 19:04 | CT_ITS ---
PROCEDURE: ABDOMEN/PELVIS W IV CONT ONLY 12/27/2024 REASON FOR EXAM: LOWER ABD PAIN Abdominal pain. TECHNIQUE: Procedure Code: CTABDPELIV Modality: CT Procedure: ABDOMEN/PELVIS W IV CONT ONLY Coronal and Sagittal reconstruction series were provided. CONTRAST: Isovue 370 VOLUME: 93 mL One or more dose reduction techniques were used (e.g., Automated exposure control, adjustment of the mA and/or kV according to patient size, use of iterative reconstruction technique. RADIATION DOSE SUMMARY: CTDlvol: 32 mGy DLP: 547 mGycm COMPARISON: June 2024 FINDINGS: Lung bases: Mild dependent atelectasis. ABDOMEN Liver: Negative. Biliary system: Negative. Negative for intrahepatic or extrahepatic ductal dilatation. Gallbladder: Negative. Negative for cholecystitis. Spleen: Negative. Pancreas: Occasional pancreatic calcification with small cyst in the body of the pancreas. No definitive solid mass. 123 Adrenals: Mild left adrenal gland fullness stable. Right adrenal gland negative Kidneys: Exophytic left renal cysts. Negative for kidney stones, cysts or masses. Bowel: Diverticulosis with thickening in the distal descending colon and sigmoid colon consistent with acute diverticulitis. This is new. No perforation or abscess. Negative for small or large-bowel obstruction. Appendix: Appendix not visualized but no inflammatory process in the right lower quadrant. Vasculature: Moderate atherosclerotic vascular calcifications of the abdominal aorta and its branches. Peritoneum / Retroperitoneum: Negative. PELVIS Lymph nodes: Negative for inguinal or iliac adenopathy. Bladder: Urinary bladder negative Reproductive Organs: Prostate negative Bones and Soft Tissues: Mild degenerative changes of the mid and lower lumbar spine. CT/Abdomen/Pelvis W IV Cont ONLY IMPRESSION: Moderate distal descending and proximal sigmoid colon diverticulitis without ab scess or rupture. Reading Location: [id number]
[2024-12-27] MEDS: 0.9% Normal Saline (1000mL) 1,000 ML 999 ML IV (19:19)
[2024-12-27 19:23] VITALS: BP 110/72
--- OUTSIDE RECORDS SUMMARY | 2024-12-27 19:30 | XMS RPT_ITS | CCD ---
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 Name Role Phone MALCOLM SPEARS Attending Unavailable JOEY RAHMAN Consulting Unavailable JOEY RAHMAN Referring Unavailable MALCOLM SPEARS Admitting Unavailable MALCOLM SPEARS Primary Care Unavailable PROVIDER, UNKNOWN Consulting Unavailable TONA RUSSO MD Admitting Unavailable TONA RUSSO MD Primary Care Unavailable TONA RUSSO MD Attending Unavailable JOEY RAHMAN Consulting Unavailable PROVIDER, UNKNOWN Consulting Unavailable Joey Rahman Primary Care Unavailable Valentin Johnson Attending Unavailable Problems Problem Classification Problem Date Documented Da te Episodic/Chronic Abdominal pain (2 sources) Abdominal pain; Translations: [Unspecified abdominal pain] Onset: Episodic Diverticulosis and diverticulitis (1 source) Diverticular disease of colon; Translations: [Diverticulosis of large intestine without perforation or abscess without bleeding] Chronic Malaise and fatigue (1 source) Fatigue; Translations: [Other fatigue] Episodic Other gastrointestinal disorders (1 source) Diarrhea; Translations: [Diarrhea, unspecified] Episodic Other gastrointestinal disorders (1 source) Other specified diseases of intestine; Translations: [Mass of cecum] Episodic Other screening for suspected conditions (not mental disorders or infectious disease) (1 source) Imaging of gastrointestinal tract abnormal; Translations: [Abnormal findings on diagnostic imaging of other parts of digestive tract] Episodic Residual codes; unclassified (1 source) History of colonoscopy; Translations: [Other specified postprocedural states] Episodic Urinary tract infections (1 source) Urinary tract infectious disease; Translations: [Urinary tract infection, site not specified] Episodic Results Test Name Value Interpretation Reference Range Facil ity 12 Lead EKGon 06-06-2024 12 Lead EKG [facility] [address] [place] [address] 12 Lead EKG 06/06/24 1217 MR#: [id number] Acct: [id number] Name: WES PHELAN Rep #: [id number] : 1950 74 From: Michoacano Harris MD Attending Dr: Status: DEP ER Ordering Dr: Valentin Johnson DO Date: 06/06/24 Location: ED Sex: M C Admitted: Test Reason : GENERAL Blood Pressure : */* mmHG Vent. Rate : 55 BPM Atrial Rate : 55 BPM P-R Int : 160 ms QRS Dur : 90 ms QT Int : 430 ms P-R-T Axes : 7 -23 1 degrees QTcB Int : 411 ms Sinus bradycardia Otherwise normal ECG Confirmed by TREMAYNE WALTON, MICHOACANO ([id number]), fan mail editor LOLI ANTHONY ([id number]) on 06/09/2024 9:58:09 AM Referred By: Confirmed By: MICHOACANO HARRIS MD 06/09/24 0958 Date Michoacano Harris MD CC: Dr. Valentin Johnson DO; Dr. Joey Rahman DO Signed Normal [facility] Abdomen/Pelvis W IV Cont ONL Yon 06-06-2024 Abdomen/Pelvis W IV Cont ONLY [facility] Imaging Services [address] [place] [id number] Abdomen/Pelvis W IV Cont ONLY MR#: [id number] Acct: [id number] Name: WES PHELAN Rep #: [id number] : 1950 M 74 From: Gibran Ceballos MD PCP: Dr. Joey Rahman DO Status: REG ER Study: Abdomen/Pelvis W IV Cont ONLY Date of Exam: Exam# [id number] Ordering Dr: Valentin Johnson DO PROCEDURE: ABDOMEN/PELVIS W IV CONT ONLY (procedure code CTABDPELIV), N/A REASON FOR EXAM: ABDOMEN PAIN TECHNIQUE: CT abdomen and pelvis was performed with IV contrast. Multiplanar reformats were generated. CONTRAST: Isovue 370 VOLUME: 98mL RADIATION DOSE SUMMARY: CTDlvol: 16.62+ 12.47 mGy DLP: 619.01 mGycm One or more dose reduction techniques were used (e.g., Automated exposure control, adjustment of the mA and/or kV according to patient size, use of iterative reconstruction technique). COMPARISON: 06/28/2020 ; note that images only are available for review, the report is not available at the time of the dictation. FINDINGS: Lung bases: Atelectasis/scarring. Additional vaguely nodular airspace disease in the LEFT lung base with clustered morphology. Discrete nodules in the region up to 8 x 5 mm. Similar elevation of the LEFT hemidiaphragm. Mitral annular calcification. Liver: Unremarkable. Spleen: Unremarkable. Gallbladder: Unremarkable. Pancreas: Pancreatic parenchymal calcifications compatible with chronic pancreatitis. Mild dilatation of the proximal main pancreatic duct to 5 mm at the pancreatic head, previously 4 mm. 9 mm hypodense likely cystic lesion along the pancreatic tail, unchanged.. Adrenals: Nodular thickening of the ADHC-fdncaoq-lggw-RIG HT adrenal gland, similar to prior, suggesting glandular hyperplasia. Kidneys: LEFT renal cyst. Tiny hypodensity in the RIGHT too small to characterize likely an additional cyst. No hydronephrosis. Punctate 2 mm calculus either within the RIGHT UVJ or within the dependent bladder lumen immediately adjacent to the UVJ. Additional punctate 3 mm nonobstructing intrarenal calculus on the RIGHT. Bowel: Diverticulosis. Mild rectosigmoid wall thickening versus underdistention.. No convincing inflammation. Borderline mildly dilated small bowel loops in the anterior LEFT mid abdomen up to 3.0 cm without convincing transition. Mild gaseous dilatation of the transverse colon to 6.1 cm. Appendix reportedly surgically absent. Lymph nodes: Unremarkable. Vasculature: Moderate to advanced atherosclerosis. Trace stranding surrounding the celiac axis is new. Mild ectasia of the proximal celiac artery to 11 mm.. Peritoneum: New trace pelvic free fluid. Bladder: As above. Otherwise underdistended and suboptimally evaluated. Reproductive Organs: Prostatomegaly. Body Wall: Small fat containing umbilical hernia. Bones: Suspect demineralization. Multilevel spinal canal stenoses up to at least moderate/severe at L3-L4, suboptimally evaluated by CT.. CT/Abdomen/Pelvis W IV Cont ONLY IMPRESSION: 1. Punctate 2 mm calculus either within the RIGHT UVJ or within the dependent bladder lumen immediately adjacent to the UVJ. No hydronephrosis. 2. Findings most suggestive of mild small and large bowel ileus. 3. New trace stranding surrounding the celiac artery is nonspecific. Correlate for clinical evidence of vasculitis. 4. Findings in the LEFT lung base suggestive of a mild infectious/inflammato ry process such as pneumonia. Discrete nodules in the region up to 6.5 mm average axial diameter may be infectious/inflammato ry, however this is not definite. Recommend CT chest in 6-12 and 18-24 months per the Fleischner recommendations, presuming no history of known malignancy or immunosuppression. 5. Mild rectosigmoid wall thickening versus underdistention. No convincing inflammation to suggest proctocolitis. Recommend clinical follow-up to exclude underlying lesion. 6. Trace pelvic free fluid, nonspecific but unexpected in a male. 7. Similar 9 mm pancreatic lesion likely to reflect a cystic neoplasm such as an IPMN. Background changes of chronic pancreatitis. Similar borderline mild main pancreatic ductal dilatation proximally. Given findings are relatively stable, recommend multiphase MRI abdomen with MRCP in 2 years per ACR recommendations. 8. Additional description as above. Reading Location: [id number] CC: Dr. Valentin Johnson, DO; Dr. Joey Rahman, DO [employer] Advisor: Signed Normal [facility] CBC W/Diff, Automatedon 05-0 Absolute Lymph 2.55 X10 3/uL Normal 0.83-4.51 [facility] Comment on above: Performed By: #### L 501.4021, L500.4050, L501.2450, L100.0100, L503.6005 #### [facility] [address] [place], [address] Absolute Neut 6.4 X10 3/uL Normal 2.0-7.7 [facility] Comment on above: Performed By: #### L 501.4021, L500.4050, L501.2450, L100.0100, L503.6005 #### [facility] [address] [place], [address] Basophils/100 WBC (Bld) 0.4 % Normal 0-1 [facility] Comment on above: Performed By: #### L 501.4021, L500.4050, L501.2450, L100.0100, L503.6005 #### [facility] [address] [place], [address] Eosinophils/100 WBC (Bld) 1.3 % Normal 0-5 [facility] Comment on above: Performed By: #### L 501.4021, L500.4050, L501.2450, L100.0100, L503.6005 #### [facility] [address] [place], [address] Erythrocyte distribution width (RBC) [Ratio] 13.7 % Normal 11.6-14.6 [facility] Comment on above: Performed By: #### L 501.4021, L500.4050, L501.2450, L100.0100, L503.6005 #### [facility] [address] [place], [address] Hematocrit (Bld) [Volume fraction] 38.5 % Low 40-54 [facility] Comment on above: Performed By: #### L 501.4021, L500.4050, L501.2450, L100.0100, L503.6005 #### [facility] [address] [place], [address] Hemoglobin (Bld) [Mass/Vol] 13.1 g/dL Normal 13.0-16.5 [facility] Comment on above: Performed By: #### L 501.4021, L500.4050, L501.2450, L100.0100, L503.6005 #### [facility] [address] [place], [address] IG% 0.500 Normal 0.0-0.9 [facility] Comment on above: Result Comment: IG% - Immature Granulocytes (promyelocytes, myelocytes and metamyelocytes) > 1% indicates that a LEFT SHIFT is Present. Performed By: #### L 501.4021, L500.4050, L501.2450, L100.0100, L503.6005 #### [facility] [address] [place], [address] Lymphocytes/100 WBC (Bld) 25.5 % Normal 19-41 [facility] Comment on above: Performed By: #### L 501.4021, L500.4050, L501.2450, L100.0100, L503.6005 #### [facility] [address] [place], [address] MCH (RBC) [Entitic mass] 31.4 pg Normal 27.0-32.0 [facility] Comment on above: Performed By: #### L 501.4021, L500.4050, L501.2450, L100.0100, L503.6005 #### [facility] [address] [place], [address] MCHC (RBC) [Mass/Vol] 34.0 g/dL Normal 32-36 [facility] Comment on above: Performed By: #### L 501.4021, L500.4050, L501.2450, L100.0100, L503.6005 #### [facility] [address] [place], [address] MCV (RBC) [Entitic vol] 92.3 fL Normal 80-94 [facility] Comment on above: Performed By: #### L 501.4021, L500.4050, L501.2450, L100.0100, L503.6005 #### [facility] [address] [place], [address] Monocytes/100 WBC (Bld) 8.4 % Normal 0-10 [facility] Comment on above: Performed By: #### L 501.4021, L500.4050, L501.2450, L100.0100, L503.6005 #### [facility] [address] [place], [address] Neutrophils/100 WBC (Bld) 63.9 % Normal 47-70 [facility] Comment on above: Performed By: #### L 501.4021, L500.4050, L501.2450, L100.0100, L503.6005 #### [facility] [address] [place], [address] Nucleated RBC (Bld) [#/Vol] 0 10*3/uL Normal 0-5 [facility] Comment on above: Performed By: #### L 501.4021, L500.4050, L501.2450, L100.0100, L503.6005 #### [facility] [address] [place], [address] Platelet mean volume (Bld) [Entitic vol] 10.0 fL Normal 6.2-12.0 [facility] Comment on above: Performed By: #### L 501.4021, L500.4050, L501.2450, L100.0100, L503.6005 #### [facility] [address] [place], [address] Platelets (Bld) [#/Vol] 320 10*3/uL Normal 150-450 [facility] Comment on above: Performed By: #### L 501.4021, L500.4050, L501.2450, L100.0100, L503.6005 #### [facility] [address] [place], [address] RBC (Bld) [#/Vol] 4.17 10*6/uL Low 4.6-6.2 [facility] Comment on above: Performed By: #### L 501.4021, L500.4050, L501.2450, L100.0100, L503.6005 #### [facility] [address] [place], [address] RDW SD 46.7 fl High 35.1-43.9 [facility] Comment on above: Performed By: #### L 501.4021, L500.4050, L501.2450, L100.0100, L503.6005 #### [facility] [address] [place], [address] WBC (Bld) [#/Vol] 10.0 10*3/uL Normal 4.4-11.0 [facility] Comment on above: Performed By: #### L 501.4021, L500.4050, L501.2450, L100.0100, L503.6005 #### [facility] [address] [place], [address] Comprehensive Metabolic Prof cton 06-06-2024 Albumin [Mass/Vol] 3.9 g/dL Normal 3.4-4.8 [facility] Comment on above: Performed By: #### L 501.4021, L500.4050, L501.2450, L100.0100, L503.6005 #### [facility] [address] [place], [address] Albumin/Globulin [Mass ratio] 1.3 {ratio} Normal 0.9-2.4 [facility] Comment on above: Performed By: #### L 501.4021, L500.4050, L501.2450, L100.0100, L503.6005 #### [facility] [address] [place], [address] ALK PHOS 69 U/L Normal 40-129 [facility] Comment on above: Performed By: #### L 501.4021, L500.4050, L501.2450, L100.0100, L503.6005 #### [facility] [address] [place], [address] ALT [Catalytic activity/Vol] 6 U/L Normal <=46 [facility] Comment on above: Performed By: #### L 501.4021, L500.4050, L501.2450, L100.0100, L503.6005 #### [facility] [address] [place], [address] AST [Catalytic activity/Vol] 17 U/L Normal <=37 [facility] Comment on above: Performed By: #### L 501.4021, L500.4050, L501.2450, L100.0100, L503.6005 #### [facility] [address] [place], [address] Bilirubin [Mass/Vol] 0.50 mg/dL Normal 0.00-1.30 [facility] Comment on above: Performed By: #### L 501.4021, L500.4050, L501.2450, L100.0100, L503.6005 #### [facility] [address] [place], [address] BUN/CRE 15.9 RATIO Normal 10-20 [facility] Comment on above: Performed By: #### L 501.4021, L500.4050, L501.2450, L100.0100, L503.6005 #### [facility] [address] [place], [address] Calcium [Mass/Vol] 8.9 mg/dL Normal 7.6-11.0 [facility] Comment on above: Performed By: #### L 501.4021, L500.4050, L501.2450, L100.0100, L503.6005 #### [facility] [address] [place], [address] Chloride [Moles/Vol] 99 mmol/L Normal 98-108 [facility] Comment on above: Performed By: #### L 501.4021, L500.4050, L501.2450, L100.0100, L503.6005 #### [facility] [address] [place], [address] CO2 [Moles/Vol] 27.1 mmol/L Normal 21.0-32.0 [facility] Comment on above: Performed By: #### L 501.4021, L500.4050, L501.2450, L100.0100, L503.6005 #### [facility] [address] [place], [address] Creatinine [Mass/Vol] 0.84 mg/dL Normal 0.70-1.20 [facility] Comment on above: Performed By: #### L 501.4021, L500.4050, L501.2450, L100.0100, L503.6005 #### [facility] [address] [place], [address] ECRCL 73.51 ml/min Normal 50-250 [facility] Comment on above: Performed By: #### L 501.4021, L500.4050, L501.2450, L100.0100, L503.6005 #### [facility] [address] [place], [address] GAP 10 Normal 5-15 [facility] Comment on above: Performed By: #### L 501.4021, L500.4050, L501.2450, L100.0100, L503.6005 #### [facility] [address] [place], [address] GFR/1.73 sq M.predicted among non-blacks MDRD (S/P/Bld) [Vol rate/Area] 91 mL/min/{1.73_m2} Normal >60 [facility] Comment on above: Result Comment: mL/m in/1.73m2 CKD-EPI Creatinine Equation (2020) Performed By: #### L 501.4021, L500.4050, L501.2450, L100.0100, L503.6005 #### [facility] [address] [place], [address] Globulin (S) [Mass/Vol] 3.0 g/dL Normal 2.2-4.2 [facility] Comment on above: Performed By: #### L 501.4021, L500.4050, L501.2450, L100.0100, L503.6005 #### [facility] [address] [place], [address] Glucose [Mass/Vol] 114 mg/dL High 70-99 [facility] Comment on above: Performed By: #### L 501.4021, L500.4050, L501.2450, L100.0100, L503.6005 #### [facility] [address] [place], [address] Potassium [Moles/Vol] 3.9 mmol/L Normal 3.3-5.1 [facility] Comment on above: Performed By: #### L 501.4021, L500.4050, L501.2450, L100.0100, L503.6005 #### [facility] [address] [place], [address] Sodium [Moles/Vol] 136 mmol/L Normal 133-145 [facility] Comment on above: Performed By: #### L 501.4021, L500.4050, L501.2450, L100.0100, L503.6005 #### [facility] [address] [place], [address] T PROT 6.9 g/dL Normal 5.9-8.4 [facility] Comment on above: Performed By: #### L 501.4021, L500.4050, L501.2450, L100.0100, L503.6005 #### [facility] [address] [place], [address] Urea nitrogen [Mass/Vol] 13 mg/dL Normal 4-19 [facility] Comment on above: Performed By: #### L 501.4021, L500.4050, L501.2450, L100.0100, L503.6005 #### [facility] [address] [place], [address] Emergency Department Summary on 06-06-2024 Emergency Department Summary [facility] Medical Records Department [address] [place] [address] Emergency Department Summary 06/06/24 MR#: [id number] Acct: [id number] Name: WES PHELAN Rep #: [id number] : 1950 74 From: Valentin Johnson DO PCP: Dr. Joey Rahman DO Status:DEP ER Location: ED HPI History of Present Illness Chief Complaint: Abd Pain Narrative Narrative: Patient is a 74-year-old male who is presenting today with chief complaint of upper abdominal pain. Patient is having upper abdominal swelling, discomfort, patient is having more burping and flatulence as well. This been going on for 2 or 3 days. Mild nausea, no vomiting. No fever or chills. No chest pain or shortness of breath. Patient has no history of cancer. Patient has a EGD and colonoscopy 4 to 5 years ago with no significant findings. Patient did have some polyps removed. Patient had a friend dropped him onto the ER. Patient says the upper abdominal swelling has been intermittent over the last week [facility] Medical History (Updated 06/06/24 @ 13:[address] Valentin Johnson DO) Loss of hearing Wears glasses Wears dentures Easy bruising Restless legs Back pain Hx of headache Injury of head and neck History of hiatal hernia Smoker Sigmoid diverticulum Mass of cecum Diarrhea Abdominal pain Fatigue Home Medications ???Medication ???Instructions ???Recorded ???Last Taken ???Type dicyclomine 10 mg capsule 20 mg (2 x 10 mg) PO TIDAC #20 04/01 Unknown Rx CAPSULES ondansetron 4 mg disintegrating 4 mg PO Q8H PRN PRN Nausea #10 tab s 06/06/24 Unknown Rx tablet Allergy/AdvReac Type Severity Reaction Status Date / Time No Known Allergies Allergy Verified 06/06/24 12:21 Family History (Updated 07/19/20 @ 09:02 by Helene Smith) Sister Pancreatic cancer Mother Diabetes Surgical History Hx of vein stripping History of colonoscopy History of arthroscopic knee surgery History of appendectomy History of repair of hiatal hernia Social History (Updated 07/19/20 @ 09:03 by Helene Smith) Smoking Status: Current every day smoker tobacco type: cigars second hand exposure: No alcohol intake: never substance use type: does not use caffeine: Yes what type of physical activity do you participate in: walking ROS ROS ED ROS Narrative REVIEW OF SYSTEMS: Unless otherwise stated in this report the patient's positive and negative responses for review of systems for constitutional, eyes, ENT, cardiovascular, respiratory, gastrointestinal, neurological, , musculoskeletal, and integument systems and related systems to the presenting problem are either stated in the history of present illness or were not pertinent or were negative for the symptoms and/or complaints related to the presenting medical problem. EXAM Physical Exam Narrative Exam Narrative: Vital signs reviewed and patient is not hypoxic. General: The patient appears well and in no apparent distress. Patient is resting comfortably on cart. Not toxic, lethargic, or listless. Skin: Warm, dry, no pallor noted. There is no rash noted. Head: Normocephalic, atraumatic Eye: Normal conjunctiva, no drainage, EOMI. PERRL. Ears, Nose, Mouth, and Throat: oral mucosa is moist. Nares patent. Mouth without vesicles. Cardiovascular: Regular Rate and Rhythm, no murmurs, gallops, or rubs Respiratory: Patient is in no distress, no accessory muscle use, lungs are clear to auscultation, no wheezing, rales or rhonchi Back: non-tender, no CVA tenderness bilaterally to percussion. NO CTLS midline or paraspinal tenderness to palpation. GI: Soft, no tenderness to palpation, no masses appreciated. No rebound, guarding, or rigidity noted. Patient says the upper abdominal swelling has been intermittent over the last week. mild discomfort to left upper quadrant right upper quadrant midepigastric area. No tympany, no rigidity, no peritoneal signs. No flank pain bilaterally. Musculoskeletal: The patient has full range of motion of all extremities and joints with no difficulty. Patient has no motor, no sensory deficits. Neurological: A O x4, normal speech, no focal neurological deficits. Psychiatric: Cooperative Const Vital Signs: 06/06/24 11:53 06/06/24 13:52 06/06/24 14:24 Temperature 98 F 98 F Temperature Source Oral Pulse Rate 72 70 70 Respiratory Rate 14 14 14 Blood Pressure 125/98 H 125/98 H Blood Pressure Mean 107 107 Pulse Ox 95 96 96 Oxygen Delivery Method Room Air Room Air MDM MDM MDM Narrative Medical decision making narrative: Patient seen and examined: Patient will have IV, labs, CT of the abdomen pelvis. Patient given 1 L IV fluid. Differential diagnosis includes but is not limited to: Nausea, vomiting, diarrhea, UTI, (more content not included)... Normal [facility] L501.4021on 06-06-2024 Trop T High Sen 10 ng/L Normal <=22 [facility] Comment on above: Performed By: #### L 501.4021, L500.4050, L501.2450, L100.0100, L503.6005 #### [facility] [address] [place], [place], [address] Lactic Acidon 06-06-2024 Lactate [Moles/Vol] mmol/L Normal 0.0-2.0 [facility] Comment on above: Order Comment: Y Performed By: #### L 501.4021, L500.4050, L501.2450, L100.0100, L503.6005 #### [facility] [address] [place], [address] Lipaseon 06-06-2024 Lipase [Catalytic activity/Vol] 25 U/L Normal 13-75 [facility] Comment on above: Result Comment: Lisa bose note: LIPASE revised reference range effective 22. New Lipase methodology. Expected to produce lower values than the previous assay method. NEW Reference Range: 13 - 75 U/L Performed By: #### L 501.4021, L500.4050, L501.2450, L100.0100, L503.6005 #### [facility] [address] [place], [address] Basophil percentageon 2021 Bilirubin [Mass/Vol] 0.60 mg/dL 0.20-1.00 [facility] Work Phone: Comment on above: For patients on eltr ombopag therapy, use of Dimension Crane TBIL is not recommended. Protein [Mass/Vol] 7.7 g/dL 6.4-8.2 [facility] Work Phone: Testosterone [Mass/Vol] 212.15 ng/dL [facility] Work Phone: Comment on above: CENTRAL 90% REFERENC E RANGES MALE AGE <50 197.44 - 669.58 ng/dL MALE AGE > or = 50 187.72 - 684.19 ng/dL FEMALE AGE <50 8.38 - 35.01 ng/dL FEMALE AGE > or = 50 <7.00 - 35.92 ng/dL Effective as of 08/31/20 WBC (Bld) [#/Vol] 8.5 10*3/uL 4.4-11.0 [facility] Work Phone: Blood erythrocytes count (nu mber/volume)on 05-26-2021 RBC (Bld) [#/Vol] 5.00 10*6/uL 4.6-6.2 [facility] Work Phone: Blood hemoglobin measurement (mass/volume)on 05-26-2021 Hemoglobin (Bld) [Mass/Vol] 15.5 g/dL 13.0-16.5 [facility] Work Phone: Blood platelet mean volumeon 05-26-2021 Platelet mean volume (Bld) [Entitic vol] 11.2 fL 6.2-12.0 [facility] Work Phone: Determination of erythrocyte mean corpuscular volume (MCV)on 05-26-2021 MCV (RBC) [Entitic vol] 94.2 fL 80-94 [facility] Work Phone: Direct bilirubinon Bilirubin.direct [Mass/Vol] 0.10 mg/dL 0.00-0.30 [facility] Work Phone: Hematocrit Auto (Bld) [Volum e fraction]on 05-26-2021 Hematocrit (Bld) [Volume fraction] 47.1 % 40-54 [facility] Work Phone: Laboratory - Chemistry and C hemistry - challengeon 05-26-2021 ALP [Catalytic activity/Vol] 73 U/L 45-117 [facility] Work Phone: ALT [Catalytic activity/Vol] 14 U/L 16-61 [facility] Work Phone: Free T4 [Mass/Vol] 0.72 ng/dL 0.76-1.46 [facility] Work Phone: Globulin (S) [Mass/Vol] 3.9 g/dL 2.2-4.2 [facility] Work Phone: Laboratory - Hematology and Cell countson 05-26-2021 Erythrocyte distribution width (RBC) [Entitic vol] 48.8 fL 35.1-43.9 [facility] Work Phone: Erythrocyte distribution width (RBC) [Ratio] 14.1 % 11.6-14.6 [facility] Work Phone: MCH (RBC) [Entitic mass] 31.0 pg 27.0-32.0 [facility] Work Phone: MCHC Auto (RBC) [Mass/Vol]on 05-26-2021 MCHC (RBC) [Mass/Vol] 32.9 g/dL 32-36 [facility] Work Phone: No Panel Informationon 05-26 Thyroid Stimulating Hormone (TSH) 1.09 uIU/mL 0.358-3.74 [facility] Work Phone: Platelets bldon 05-26-2021 Platelets (Bld) [#/Vol] 271 10*3/uL 150-450 [facility] Work Phone: Serum or plasma albumin noreen urement (mass/volume)on 05-26-2021 Albumin [Mass/Vol] 3.8 g/dL 3.2-5.0 [facility] Work Phone: Thin prep Papanicolaou smear with manual screeningon 05-26-2021 Thin prep Papanicolaou smear with manual screening 19 U/L 15-37 [facility] Work Phone: EMERGENCY REPORTon 1 EMERGENCY REPORT [facility] EMERGENCY ROOM REPORT NAME ACCOUNT SEX AGE ADMIT DISCHARGE PT MED. RECORD# NUMBER DATE DATE TYPE WES PHELAN [id number] Virgil 69 05/12/20 05/12/20 3 [id number] ROOM: ER DATE OF : 1950 DICTATING PHYSICIAN: Malcolm Spears CHIEF COMPLAINT: Fatigue and malaise. HISTORY OF PRESENT ILLNESS: The patient states that over the last approximately 2 weeks he has just felt increasingly tired, fatigued, and weak. He notices this mainly with activity. He really does not have other significant symptoms such as chest pain, shortness of breath, diaphoresis. He has not fever or chills. He states that he is able to eat and drink well. He feels fine when he wakes up in the morning, but then when he starts to get up and move around he just feels very fatigued. He states it is to the point that he has to basically sit down and rest after working a short period of time. He will feel a bit better after that, but then when he starts to work again he feels more fatigued. This is to the point that he has not been able to work this week. He states that he was working last week. As mentioned, he has no complaints of chest pain. No shortness of breath, nausea, weakness, etc. He saw his family physician, and then was referred to Dr. Russo. He saw Dr. Russo where he had a number of laboratory studies obtained. PAST MEDICAL HISTORY: Past medical history is negative for any known medical problems. PAST SURGICAL HISTORY: He has had a previous left knee surgery and hiatal hernia surgery. MEDICATIONS: He takes no medications. ALLERGIES: No allergies. SOCIAL HISTORY: He is Arthur. He lives at home. He does not smoke or drink alcohol. He is employed in some type of a [employer]. REVIEW OF SYSTEMS: The patient states he intermittently has some mild abdominal discomfort. He does not notice any eating related symptoms. He does have some constipation occasionally. He has not passed any blood in his stools. No pain or swelling to extremities. No rashes. No significant weight change. PHYSICAL EXAMINATION: This is a 69-year-old generally pleasant, alert appropriate male who does not appear toxic or in acute distress. His skin is pink, warm, and dry. HEENT: All within normal limits. His neck is supple without adenopathy. Lungs are clear without crackles or wheezes. Cardiac exam is regular rhythm without ectopy or Page 1 of 3 WES PHELAN Emergency Room Report WES PHELAN : 1950 murmurs, gallops or rubs. Abdomen is perhaps minimally distended, but no appreciable tenderness. No guarding or rebound. No masses noted. Active bowel sounds. He moves all extremities appropriately without any focal weaknesses. Good peripheral pulses. Good capillary refill. Vital signs: Blood pressure 107/81, pulse 68, respirations 18, and temperature 97.2. DIAGNOSTIC DATA: He did have a number of outpatient laboratories done just recently that he brought copies with. I did review these. These were quite unremarkable other than pfei-ka-rygsrburnk total cholesterol and non-HDL cholesterol and mildly elevated triglycerides. Otherwise, no significant findings there. Abdominal CT mainly showed some calcifications in the pancreas and diverticulosis, but no other findings of any note. I did get an EKG on him as mentioned which showed sinus rhythm. Normal EKG. No acute abnormalities. EMERGENCY DEPARTMENT COURSE AND TREATMENT: His O2 saturation is 93 to 94%. He was asking if he could get an ultrasound. I told him that we would be able to do that. I felt with his lack of abdominal pain, postprandial symptoms, etc. that the yield for likely a cause of etiology with this would be unlikely. I did state that we could get a CAT scan, which would have a little more likelihood of findings, though he really does not seem to have significant abdominal or GI complaints. He did want us to proceed with that, so we did get an abdominal CT. The cause of his malaise and fatigue is unclear. The possibility of an atypical anginal like presentation I feel would probably need to be considered as he definitely seems to have these symptoms come on with activity and improving with rest with a relatively new onset over the last couple of weeks. DIAGNOSIS: Weakness and exertional fatigue specifically, the cause unclear. PLAN/DISPOSITION: I recommended that proceeding with a stress test would probably be a good idea and offered to set that up with him or if he wants to followup with his family physician to do that, that would be an option as well. He did state that he will hold off getting it scheduled presently. No evidence of any acute emergent pathology requiring immediate intervention. Dictated By: Malcolm Spears MD 05/12/20 11:36 JOB #: [id number] Transcribed By: am 05/12/20 13:51 Electronically signed by: AMADO Spears M.D. 05/13/20 07:58 Page 2 of 3 WES [facility]AN Emergency Room Report [place]AN WES Virgil : 1950 Page 3 of 3 WES P[facility]AN Emergency Room Report Normal [facility] CT ABDOMEN/PELVIS Won 2020 CT ABDOMEN/PELVIS [place] [address] Patient: TAPANWES LOPEZ Virgil. Phone#: : 1950 Age: 69 Gender: M Pt. Type: ER Account: [id number] Location: [facility] Ordering: MALCOLM SPEARS Exam Date: 05/12/2020/10:29 Family Phys: JOEY RAHMAN Charge Code: 570323 Physician: Nicholas Order #: [id number] DLP Dose#: PROCEDURE: CT ABDOMEN/PELVIS WITH CONTRAST COMPARISON: None. INDICATIONS: Abdominal pain. TECHNIQUE: After obtaining the patient's consent, CT images were created with non-ionic intravenous contrast material. All CT scans at this facility use dose modulation, iterative reconstruction, and/or weight based dosing when appropriate to reduce radiation dose to as low as reasonably achievable. IV CONTRAST: Omnipaque 350,80ml TOTAL DOSE: 11.0 CTDIvol(mGy) FINDINGS: LIVER: Normal. No enlargement, atrophy, abnormal density, or significant focal lesion. BILIARY: Gallbladder is present. PANCREAS: There are scattered calcifications in the pancreas, correlate for chronic pancreatitis. SPLEEN: Normal. No enlargement or focal lesion. KIDNEYS: Kidneys enhance and excrete contrast symmetrically. No hydronephrosis. There is a cyst in the left kidney measuring 1.3 cm. ADRENALS: Two nodules in the left adrenal gland measuring 1.3 x 1.1 cm and 1.2 x 1.1 cm. They both demonstrate washout characteristics suggestive of adrenal adenomas. AORTA/VASCULAR: No aortic aneurysm. There are atherosclerotic calcifications of the aorta and branch vessels. RETROPERITONEUM: Normal. No mass or adenopathy. BOWEL/MESENTERY: No bowel obstruction or dilatation. There is diverticulosis of the sigmoid colon. The appendix is not definitively identified. There is moderate stool burden. Continued Report - Page 2 of 2 Patient: WES PHELAN Phone#: : 1950 Age: 69 Gender: M Pt. Type: ER Account: [id number] Location: [facility] Ordering: MALCOLM SPEARS Exam Date: 05/12/2020/10:29 Family Phys: JOEY RAHMAN Charge Code: 284366 Physician: Nicholas Order #: [id number] DLP Dose#: ABDOMINAL WALL: Fat containing umbilical hernia. URINARY BLADDER: Normal. No visible focal wall thickening, lesion, or calculus. PELVIC NODES: Normal. No adenopathy. PELVIC ORGANS: There are calcifications in the prostate BONES: Disc height loss with vacuum phenomena at L4-5. Grade 1 anterolisthesis of L4 on L5. LUNG BASES: There are dependent changes. OTHER: Negative. CONCLUSION: 1. Scattered calcifications throughout the pancreas, correlate for chronic pancreatitis. No signs of acute inflammation. 2. Diverticulosis. Dictated by: Prabha Deal MD on 05/12/2020 at 10:42 Approved by: Prabha Deal MD on 05/12/2020 at 11:09 Normal [facility] Encounters Encounter Date Encounter Type Care Provider Facility Start: 06-06-2024 End: 06-06-2024 Emergency department patient visit Joey Gypsy Facility:[facility] Start: 05-26-2021 End: 05-26-2021 Patient encounter procedure [facility] Start: 05-12-2020 Patient encounter procedure TONA W[facility] Start: 05-12-2020 End: 05-12-2020 Emergency department patient visit MALCOLM SPEARS [facility] Payers Date Payer Category Payer Self-pay [id number] 2024 Unknown [id number] 1950 Unknown [id number] 1950 Unknown [id number] Unknown 102 Unknown [id number] Social History Date Type Detail Facility Start: 07-20-2020 Tobacco smoking stat [facility] Unknown if ever smoked [facility] Work Phone: Start: 06-28-2020 Non-smoker [facility] Work Phone: Start: 1950 Sex Assigned At Male W [facility] Work Phone: Evaluation note Note Date & Type Note Facility Evaluation note No assessment information availa ble [facility] Work Phone: Summary Purpose Family History No Family History Records Found Relationship Condition Age at Onset Recorded Date/T tere sister Malignant neoplasm of pancreas Unknown mother Diabetes mellitus Unknown Advance Directives No Advanced Directives Records Found Advance Directive Response Recorded Date/ Time Living Will Yes July 20, 2020 10:38am 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 This clinical summary was aggregated from multiple sources. Caution should be exercised in using it in the provision of clinical care. This summary normalizes information from multiple sources, and as a consequence, information in this document may materially change the coding, format and clinical context of patient data. In addition, data may be omitted in some cases. CLINICAL DECISIONS SHOULD BE BASED ON THE PRIMARY CLINICAL RECORDS. [facility]. provides no warranty or guarantee of the accuracy or completeness of information in this document.
[2024-12-27 19:37] LABS: Mucous, Urine 0 SEEN /hpf (<or=2+)
[2024-12-27 19:41] LABS: Color, Urine Yellow (Yellow); Glucose, Dipstick 100 mg/dl (Normal); Ketone-Dipstick Negative (Negative); Leukocyte Esterase-Dipstick 100 /ul (Negative); Nitrite-Dipstick Negative (Negative); Occult Blood-Urine 25 /ul (Negative); Protein-Dipstick 15 mg/dl (Negative); Specific Gravity, Urine 1.015 (1.002-1.030); Urine Bilirubin Dipstick Negative (Negative)
[2024-12-27 19:44] LABS: Hematocrit 38.0 % (40-54); Hemoglobin 12.7 g/dL (13.0-16.5); Immature Granulocytes Count 0.040 X10^3/uL (0.0-0.0); Mean Corp Hgb Conc 33.4 g/dL (32-36); Mean Corpuscular Volume 94.5 fL (80-94); Mean Platelet Vol. 11.0 fl (6.2-12.0); NRBC Flagged by Analyzer 0 % (0-5); Platelet Count 238 K/mm3 (150-450); RBC Distribution Width CV 14.5 % (11.6-14.6); RBC Distribution Width SD 50.3 fl (35.1-43.9); Red Blood Count 4.02 M/mm3 (4.6-6.2); White Blood Count 11.1 K/mm3 (4.4-11.0)
[2024-12-27 19:57] LABS: Lipase 34 U/L (13-75)
[2024-12-27 19:59] LABS: Red Blood Cells-Urine 0-5 SEEN /hpf (0-5); Squamous Epithelial Cells - UA 0-5 SEEN /hpf (0-5)
[2024-12-27 20:09] LABS: AST(SGOT) 22 U/L (<=37); Alanine Aminotransfer ALT/SGPT 5 U/L (<=46); Albumin, Serum 3.9 g/dL (3.4-4.8); Alkaline Phosphatase 73 U/L (40-129); Anion Gap 10 (5-15); BUN 18 mg/dL (4-19); BUN/Creat Ratio 19.9 RATIO (10-20); Calcium,Total 8.8 mg/dL (7.6-11.0); Carbon Dioxide 25.4 mmol/L (21.0-32.0); Chloride 101 mmol/L (98-108); Estimated Creatinine Clearance 67.86 ml/min (50-250); Globulin 3.0 g/dL (2.2-4.2); Glucose 134 mg/dL (70-99); Potassium 3.8 mmol/L (3.3-5.1)
--- NOTE | 2024-12-27 20:48 | EDS_ITS ---
HPI HPI - GI History of Present Illness Chief Complaint: Abd Pain Narrative Narrative: Patient is a 74-year-old male presenting to the emergency department for abdominal pain that started yesterday. Patient states that the pain came on fairly gradually. He has a past medical history of an abnormal CT scan of his colon, UTI, sigmoid diverticulum and a mass of the cecum. Patient denies fever or chills. Denies any nausea or vomiting. States it is all lower abdominal pain, 1 side is not worse than the other. No pain that goes into his back or into his scrotum. Denies any dysuria or hematuria. Denies any scrotal swelling, redness or pain. States that he thought he was constipated yesterday so he took some stool softeners and then had nonbloody diarrhea last evening. States this will usually make the pain better but he still continued to have pain. PFSH PFSH Medical History Loss of hearing Wears glasses Wears dentures Easy bruising Restless legs Back pain Hx of headache Injury of head and neck History of hiatal hernia Smoker Sigmoid diverticulum Mass of cecum Diarrhea Abdominal pain Fatigue Home Medications ?Medication ?Instructions ?Recorded ?Last Taken ?Type acetaminophen 325 mg tablet (Pain 650 mg PO Q6H PRN pa in 12/27/24 Unknown History Relief (acetaminophen)) amoxicillin 875 mg-potassium 1 tab PO BID 7 days #14 t abs 12/27/24 Unknown Rx clavulanate 125 mg tablet aspirin 325 mg tablet 650 mg PO Q6H PRN pain 12/27 Unknown History ibuprofen 200 mg tablet (Advil) 400 mg PO Q8H PRN pain 12/27/24 Unknown History Allergy/AdvReac Type Severity Reaction Status Date / Time No Known Allergies Allergy Verified 12/27/24 18:05 Family History Sister Pancreatic cancer Mother Diabetes Surgical History Hx of vein stripping History of colonoscopy History of arthroscopic knee surgery History of appendectomy History of repair of hiatal hernia Social History Smoking Status: Current some day smoker tobacco type: cigars second hand exposure: No alcohol intake: never substance use type: does not use caffeine: Yes what type of physical activity do you participate in: walking ROS ROS ED ROS Narrative see HPI EXAM Physical Exam Narrative Exam Narrative: Vital signs: Reviewed General: Alert and oriented x 3. No acute distress HEENT: Head is normocephalic and atraumatic, sinuses nontender, pupils equal round and reactive. Nares are patent. Oropharynx and throat exams normal. Neck: Supple without lymphadenopathy nontender Cardiovascular: Regular rate and rhythm, no murmurs. No rubs or gallops. Normal S1 and S2 Respiratory: Clear to auscultation bilaterally. No wheezes, rales, rhonchi Abdominal: Soft and tender to palpation in the lower abdomen from right lower quadrant to suprapubic to left lower quadrant. Normal bowel sounds. No guarding or rebound. Nonsurgical abdomen Extremities: No tenderness. No bruising. Normal range of motion. Normal sensation. Skin: No rash or redness. Neurological: Cranial nerves II through XII are grossly intact. Normal strength and sensation. Normal cerebellar function The rest of the physical exam is unremarkable Const Vital Signs: 12/27/24 18:03 12/27/24 19:23 12/27/24 21:00 Temperature 98.2 F 98 F Temperature Source Temporal Pulse Rate 94 81 Respiratory Rate 17 20 H Blood Pressure 112/70 110/72 124/77 H Blood Pressure Mean 84 84 92 Pulse Ox 94 97 Oxygen Delivery Method Room Air MDM MDM MDM Narrative Medical decision making narrative: Patient is a 74-year-old male presenting to the emergency department for abdominal pain that started yesterday. Patient was seen and examined. Vitals are stable. Patient resting in bed comfortably no acute distress. Differential includes but is not limited to: SBO, diverticulitis, colitis, UTI, appendicitis, constipation Patient started on fluids and given morphine here for symptomatic control. CBC with WBC of 11.1 and anemia of 12.7. CMP with no significant abnormalities. Lipase within normal limits. Urinalysis with rare bacteria and leukocyte esterase however no nitrates or WBCs. I do not think this is a urinary tract infection. CT shows moderate distal descending and proximal sigmoid colon diverticulitis without abscess or rupture. Patient was given first dose of Augmentin here. Patient and family member at bedside updated on the findings. Patient is stable for outpatient management of his diverticulitis. Will be given Augmentin for home-going. Instructed to return with any worsening abdominal pain, nausea, vomiting or fevers. Patient discharged from the Emergency Department. I do not feel that the patient's evaluation reveals any acute reason for admission at this time. I instructed them to either follow-up with their primary care physician or promptly return to the Emergency Department for reevaluation should symptoms worsen or new symptoms develop. I explained what symptoms would indicate the need to return to the emergency department. Shared decision making was used. The patient voiced understanding of the treatment plan and is agreeable with it. Clinical impression Diverticulitis Abdominal pain History & Record Review Discussion w/independent historian: Patient and Family Additional record(s) reviewed:: Prior ED visit and Prior labs Lab Data Attestation: I reviewed the patient's lab results. Labs: Laboratory Results - last 24 hr 12/27/24 18:55 WBC 11.1 H RBC 4.02 L Hgb 12.7 L Hct 38.0 L MCV 94.5 H MCH 31.6 MCHC 33.4 RDW Std Deviation 50.3 H RDW Coeff of [place] 14.5 Plt Count 238 MPV 11.0 Immature Gran % (Auto) 0.400 Neut % (Auto) 68.5 Lymph % (Auto) 19.0 [place] % (Auto) 11.0 H Eos % (Auto) 0.7 Baso % (Auto) 0.4 Absolute Neuts (auto) 7.6 Absolute Lymphs (auto) 2.12 Nucleated RBC % 0 Sodium 136 Potassium 3.8 Chloride 101 Carbon Dioxide 25.4 Anion Gap 10 BUN 18 Creatinine 0.91 Estim Creat Clear Calc 67.86 Est GFR (MDRD) Non-Af 88 BUN/Creatinine Ratio 19.9 Glucose 134 H Calcium 8.8 Total Bilirubin 0.81 AST 22 ALT 5 Alkaline Phosphatase 73 Total Protein 6.9 Albumin 3.9 Globulin 3.0 Albumin/Globulin Ratio 1.3 Lipase 34 Urine Color Yellow Urine Clarity Clear Urine pH 6.0 Ur Specific [place] 1.015 Urine Protein 15 H Urine Glucose (UA) 100 H Urine Ketones Negative Urine Occult Blood 25 H Urine Nitrite Negative Urine Bilirubin Negative Urine Urobilinogen Normal Ur Leukocyte Esterase 100 H Urine RBC 0-5 SEEN Urine WBC 0-5 SEEN Ur Squamous Epith Cells 0-5 SEEN Urine Bacteria RARE Urine Mucus 0 SEEN Radiography Diagnostic Testing: Clinical Impression(s) from Imaging Studies Abdomen/Pelvis CT 12/27/24 19:04 IMPRESSION: Moderate distal descending and proximal sigmoid colon diverticulitis without abscess or rupture. Reading Location: [facility] Discharge Plan Triage Chief Complaint: Abd Pain ED Provider: Jessica Renee Dx/Rx/DC Orders Clinical Impression: Diverticulitis Instructions: Diverticulitis Dc Prescriptions: New amoxicillin-pot clavulanate 875-125 mg tablet 1 tab PO BID 7 Days Qty: 14 0RF No Action acetaminophen [Pain Relief (acetaminophen)] 325 mg tablet 650 mg PO Q6H PRN (Reason: pain) ibuprofen [Advil] 200 mg tablet 400 mg PO Q8H PRN (Reason: pain) aspirin 325 mg tablet 650 mg PO Q6H PRN (Reason: pain) Primary Care Provider: Care Physician,No Primary Referrals: Cassie Irene MD [Med Staff - Supervisor Of Operations, Internal Medicine] - As soon as possible Care Physician,No Primary [Primary Care Provider, Medical] Activity Restrictions/Additional Instructions: Take the antibiotic every 12 hours for 7 days. You need to return if you develop any worsening abdominal pain, nausea, vomiting or fevers. Your evaluation in the Emergency Department did not reveal any acute reason for admission. However, I want to emphasize that you may be early in the course of a disease process or illness even if it is not present. For this reason you should follow-up within 24 hours for reevaluation with either your primary care physician or if necessary back here in the Emergency Department. You should return to the Emergency Department immediately if your symptoms worsen or new symptoms develop. Print Language: Mexican Disposition Disposition: Home, Self Care
[2024-12-27 21:00] VITALS: BP 124/77; PULSE 81; RESP 20; TEMP 36.6; O2SAT 97
== END 2024-12-27 21:34 | disposition home or self-care (01) ==
PROVIDERS: Emergency Provider Student in an Organized Health Care Education/Training Program; Visit Provider Student in an Organized Health Care Education/Training Program
DX: R10.9 Unspecified abdominal pain (principal); K57.92 Diverticulitis of intestine, part unspecified, without perforation or abscess without bleeding; Z90.49 Acquired absence of other specified parts of digestive tract; F17.290 Nicotine dependence, other tobacco product, uncomplicated
CPT/HCPCS: 74177; 80053; 81001; 83690; 85025; 96374; 96375; 99283; Q9967; A4216